=== PATIENT | female | born 2005 | race Two or more races ===

== ENCOUNTER 2025-10-21 16:41 | Emergency (ER) | payer OTHER ==
[~2025-10-21] VITALS: Ht 165.1 cm; Wt 65.8 kg
[2025-10-21] MEDS ORDERED: CEFTRIAXONE SODIUM 1,000 MG VIAL IM ONE (18:30)
[2025-10-21] MEDS ORDERED: KETOROLAC TROMETHAMINE 60 MG VIAL IM ONE (18:30)
[2025-10-21] MEDS ORDERED: NORFLEX100MG PO (18:31)
[2025-10-21] MEDS ORDERED: CEFUROXIME500 MG PO (18:31)
[2025-10-21] MEDS ORDERED: PEPCID AC20 MG PO (18:31)
== END 2025-10-21 20:26 | disposition home or self-care (01) ==
LOC: ER 16:42
DX: L02.212 Cutaneous abscess of back [any part, except buttock and flank] (principal); L02.91 Cutaneous abscess, unspecified; Z88.2 Allergy status to sulfonamides

== ENCOUNTER 2025-10-23 15:50 | Emergency (ER) | payer OTHER ==
[~2025-10-23] VITALS: Ht 165.1 cm; Wt 75.3 kg
[~2025-10-23 15:50] MED LIST: CEFUROXIME500 MG PO; NORFLEX100MG PO; PEPCID AC20 MG PO
[2025-10-23] MEDS ORDERED: ACETAMINOPHEN 500 MG GEL..CAP PO ONE ×2 (17:15→18:26)
[2025-10-23] MEDS ORDERED: 0.9 % SODIUM CHLORIDE 1,000 ML IV ONE (17:15)
[2025-10-23 19:20] LABS: BASO % 0.4 % (0.1-1.2); EOS # 0.14 (0.04-0.54); EOS % 1.4 % (0.7-7.0); LYMPH # 1.93 (1.18-3.74); LYMPH % 19.0 % (19.3-53.1); MEAN PLATELET VOLUME 8.80 fl (9.4-12.4); MONO # 0.70 (0.24-0.82); MONO % 6.9 % (4.7-12.5); NEUT # 7.35 (1.56-6.13); NEUT % 72.2 % (34.0-71.1); RED CELL DISTRIBUTION WIDTH 11.3 % (11.6-14.4)
[2025-10-23 19:51] LABS: INR 0.99
[2025-10-23 19:57] LABS: ALT/SGPT 21.0 U/L (12-78); AST/SGOT 13.0 U/L (15-37); BILIRUBIN TOTAL 0.36 mg/dL (0.3-1.2); BUN CREA RATIO 7.0 (7.0-25.0); CREATININE SERUM 0.69 mg/dL (0.55-1.02); GFR 107.4; GLOBULINA 4.4 G/DL (2.4-3.5); GLUCOSE FASTING 80.0 mg/dL (65-100); OSMOLALITY SERUM 272.0 MOSM/KG (275-295)
[2025-10-23] MEDS ORDERED: KETOROLAC TROMETHAMINE 30 MG VIAL IV ONE (20:15)
[2025-10-23] MEDS ORDERED: DICLOFENAC SODI50 MG PO (21:24)
[2025-10-23] MEDS ORDERED: INTESTINEX680 M1 PO (21:24)
[2025-10-23] MEDS ORDERED: AVIDOXY100 MG PO (21:24)
[2025-10-23] MEDS ORDERED: PEPCID AC20 MG PO (22:03)
[2025-10-23] MEDS ORDERED: ONDANSETRON ODT4 MG PO (22:03)
== END 2025-10-23 23:04 | disposition home or self-care (01) ==
LOC: ER 15:50
PROVIDERS: General Practice
DX: L05.01 Pilonidal cyst with abscess (principal); R21 Rash and other nonspecific skin eruption; Z88.0 Allergy status to penicillin
CPT/HCPCS: 36415; 74177; Q9965